=== PATIENT | female | born 1990 | race African-American/Black ===

== ENCOUNTER 2020-06-25 23:15 | Inpatient (IN) | payer OTHER ==
[2020-06-26] MEDS ORDERED: AMPICILLIN - 2 GM in SODIUM CHLORIDE 100 ML IVPB ONE ×2 (00:13→00:41)
[2020-06-26] MEDS: ELECTROLYTE-148 SOLN 1,000 ML IV SCH ×2 (01:00→06:00)
[2020-06-26] MEDS ORDERED: AMPICILLIN SODIUM 2 GM VIAL ONE (01:25)
[2020-06-26 01:36] LABS: BASO % 0.5 % (0-2.0); EOS % 1.1 % (0-4.5); HEMOGLOBIN 12.6 GM/dL (10.7-15.3); LYMPH % 27.5 % (8-40); MCH 29.9 pg (25.7-33.7); MCHC 33.9 g/dl (32.0-36.0); MEAN CELL VOLUME 88.2 fl (80-96); MEAN PLT VOLUME 10.3 fl (7.5-11.1); MONO % 7.9 % (3.8-10.2); PLATELET COUNT 185 K/MM3 (134-434); RDW 13.3 % (11.6-15.6); WHITE BLOOD COUNT 7.6 K/mm3 (4.0-10.0)
[2020-06-26 01:43] LABS: INR 1.04 (0.83-1.09); PROTHROMBIN TIME (PATIENT) 12.6 SEC (9.7-13.0)
[2020-06-26 01:45] LABS: ACTIVATED PTT 28.6 SECONDS (25.2-36.5)
[2020-06-26 01:57] LABS: POTASSIUM 3.7 mmol/L (3.5-5.1)
[2020-06-26 01:58] LABS: CALCIUM 8.1 mg/dL (8.5-10.1)
[2020-06-26 01:59] LABS: BLOOD UREA NITROGEN 5.7 mg/dL (7-18)
[2020-06-26 02:02] LABS: CREATININE 0.5 mg/dL (0.55-1.3)
[2020-06-26 02:05] VITALS: BMI 53.8
[2020-06-26] MEDS ORDERED: MISOPROSTOL 25 MCG TABLET (COMPOUNDED BY PHARMACY) PO ONE ×2 (04:00→09:45)
[2020-06-26] MEDS ORDERED: AMPICILLIN - 1 GM in SODIUM CHLORIDE 100 ML IVPB SCH (04:15)
[2020-06-26] MEDS ORDERED: AMPICILLIN SODIUM 1 GM VIAL ONE ×4 (04:46→17:00)
[2020-06-26 08:15] LABS: POC NITRAZINE POS
[2020-06-26] MEDS: AMPICILLIN - 1 GM in SODIUM CHLORIDE 100 ML IVPB SCH ×3 (09:00→17:01)
[2020-06-26] MEDS ORDERED: MISOPROSTOL 100 MCG TABLET PO ONE (13:45)
[2020-06-26] MEDS ORDERED: PROMETHAZINE HCL 25 MG/1 ML VIAL IM ONE (17:45)
[2020-06-26] MEDS ORDERED: BUTORPHANOL TARTRATE 2 MG/ML VIAL IVPB ONE (17:45)
[2020-06-26] MEDS ORDERED: BUTORPHANOL TARTRATE 2 MG/ML VIAL ONE (17:52)
[2020-06-26] MEDS ORDERED: PROMETHAZINE HCL 25 MG/1 ML VIAL ONE (17:52)
[2020-06-26] MEDS ORDERED: OXYTOCIN 30 UNITS in 0.9% NS 30 UNIT/500 ML INFUS.BAG IVPB SCH (19:15)
[2020-06-26] MEDS ORDERED: OXYTOCIN 30 UNITS in 0.9% NS 30 UNIT/500 ML INFUS.BAG IVPB ONE (19:30)
[2020-06-26] MEDS ORDERED: OXYTOCIN 20 UNITS in 0.9% NS 20 UNIT/1,000 ML INFUS.BAG IV ONE (20:09)
[2020-06-26] MEDS ORDERED: BENZOCAINE 20% 57 GM BOTTLE TP PRN (20:31)
[2020-06-26] MEDS ORDERED: BENZOCAINE 28 GM HEMORRHOIDAL OINTMENT TP PRN (20:31)
[2020-06-26] MEDS ORDERED: ACETAMINOPHEN 325 MG TABLET (FP) PO PRN (20:31)
[2020-06-26] MEDS ORDERED: WITCH HAZEL 50% (TUCKS) 40 PAD/JAR PAD TP PRN (20:31)
[2020-06-26] MEDS ORDERED: IBUPROFEN 600 MG TABLET (FP) PO PRN (20:31)
[2020-06-26] MEDS ORDERED: BISACODYL 10 MG SUPP.RECT RC PRN (20:31)
[2020-06-26] MEDS ORDERED: MISOPROSTOL 100 MCG TABLET PV ONE (20:38)
[2020-06-26] MEDS ORDERED: OXYTOCIN 20 UNITS in 0.9% NS 20 UNIT/1,000 ML INFUS.BAG IV SCH (20:45)
[2020-06-26 21:08] LABS: CORD BASE EXCESS -6.1 mmol/L (0-2); CORD HCO3 18.7 mmHg (20-29); CORD PCO2 35.2 mmHg (30-78); CORD pH 7.343 (7.14-7.44)
[2020-06-27] MEDS: ELECTROLYTE-148 SOLN 1,000 ML IV SCH (00:48)
[2020-06-27 08:32] LABS: BASO % 0.1 % (0-2.0); EOS % 0.7 % (0-4.5); HEMATOCRIT 38.3 % (32.4-45.2); HEMOGLOBIN 12.9 GM/dL (10.7-15.3); LYMPH % 16.7 % (8-40); MCH 29.9 pg (25.7-33.7); MCHC 33.7 g/dl (32.0-36.0); MEAN CELL VOLUME 88.5 fl (80-96); MEAN PLT VOLUME 10.2 fl (7.5-11.1); MONO % 6.5 % (3.8-10.2); PLATELET COUNT 173 K/MM3 (134-434); RBC 4.32 M/mm3 (3.60-5.2); RDW 13.3 % (11.6-15.6); WHITE BLOOD COUNT 11.9 K/mm3 (4.0-10.0)
[2020-06-27] MEDS ORDERED: SENNOSIDES/DOCUSATE COMBO (SENNA PLUS) TABLET (UD) PO PRN (22:00)
[2020-06-28 10:01] VITALS: BP 107/53; PULSE 77; TEMP 98.3
== END 2020-06-28 12:30 | disposition home or self-care (01) | DRG 560 ==
LOC: JLDR 23:15 → J3W 06-27 00:36
PROVIDERS: ADMIT Obstetrics & Gynecology; ATTEND Obstetrics & Gynecology
PROC: 10E0XZZ Delivery of Products of Conception, External Approach (ICD-10-PCS; principal; 2020-06-26)
PROC: 3E0D7GC Introduction of Other Therapeutic Substance into Mouth and Pharynx, Via Natural or Artificial Opening (ICD-10-PCS; 2020-06-26)
DX: O42.013 Preterm premature rupture of membranes, onset of labor within 24 hours of rupture, third trimester (principal); O99.214 Obesity complicating childbirth; E66.01 Morbid (severe) obesity due to excess calories; Z3A.36 36 weeks gestation of pregnancy; Z37.0 Single live birth
CPT/HCPCS: 36415; 36600; 59409; 80048; 82803; 83986-QW; 85025; 85610; 85730; 86780; 86850; 86900; 86901; 87389; C9803; U0003